=== PATIENT | male | born 1965 | race Caucasian/White ===

== ENCOUNTER 2021-07-21 08:08 | Emergency (ER) | payer BC, SELFPAY ==
[2021-07-21 08:10] VITALS: BP 135/89; PULSE 109; RESP 18; TEMP 38.1; O2SAT 98; BMI 28.5
--- NOTE | 2021-07-21 08:27 | HMH.EDGENADL ---
ED Disposition Clinical Impression: Acute respiratory failure with hypoxia, Pneumonia due to COVID-19 virus Disposition: Home, Self-Care Condition on Discharge: Good Instructions: Pneumonia-Adult, Coronavirus Disease 2019 Prescriptions: dexAMETHasone [Dexamethasone] 2 mg PO BID 10 Days #20 tab Transmission Status: Received by [id number] Ondansetron [Zofran 4mg ODT] 4 mg PO BIDP PRN #10 tab PRN Reason: Nausea Transmission Status: Received by [id number] Referrals: Baldomero Pastor MD [Primary Care Provider] - - Critical Care Critical Care Time: No Attestation: On 07/21/21, the high probability of a clinically significant, sudden or life threatening deterioration of the following system(s) required my full and direct attention, intervention and personal management. The time I documented below is in addition to time spent performing reported procedures but includes the following listed in this critical care notation. Medical Decision Making - Medical Records Medical records reviewed: Yes: I reviewed the patient's medical records. - Malcom Inquiry Pt receiving controlled substance: No Vital Signs: 07/21/21 08:10 07/21/21 08:30 07/21/21 09:00 Temperature 100.6 F H Temperature Source Oral Pulse Rate 103 H 92 H Pulse Rate [Left Radial] 109 H Respiratory Rate 18 Blood Pressure 142/95 H 143/77 H Blood Pressure [Right Arm] 135/89 Blood Pressure Mean 107 98 Blood Pressure Mean [Right Arm] 104 Blood Pressure Source Blood Pressure Source [Right Arm] Automatic Cuff Blood Pressure Position Blood Pressure Position [Right Arm] Sitting 02 Sat by Pulse Oximetry 98 91 L 90 L Oxygen Delivery Method Room Air Oxygen Flow Rate (LPM) 07/21/21 09:40 07/21/21 10:08 07/21/21 11:10 Temperature 98.8 F Temperature Source Pulse Rate 90 79 Pulse Rate [Left Radial] Respiratory Rate 20 Blood Pressure 130/76 139/74 Blood Pressure [Right Arm] Blood Pressure Mean Blood Pressure Mean [Right Arm] Blood Pressure Source Automatic Cuff Blood Pressure Source [Right Arm] Blood Pressure Position Sitting Blood Pressure Position [Right Arm] 02 Sat by Pulse Oximetry 88 L 93 L Oxygen Delivery Method Room Air Nasal Cannula Nasal Cannula Oxygen Flow Rate (LPM) 2 2 - Lab Data Lab Results 07/21/21 08:29: SARS-CoV-2 (PCR) Detected A, Influenza A Untype (PCR) Not detected, Influenza Type B (PCR) Not detected 07/21/21 08:55: WBC 3.8 L, RBC 5.32, Hgb 16.5, Hct 47.2, MCV 88.6, MCH 30.9, MCHC 34.9, RDW 12.9, Plt Count 94 L, MPV 8.8, Neut % (Auto) 81.1 H, Lymph % (Auto) 12.9, Sevier % (Auto) 5.4, Eos % (Auto) 0.0 L, Baso % (Auto) 0.5, Neut # (Auto) 3.1, Lymph # (Auto) 0.5 L, Sevier # (Auto) 0.2, Eos # (Auto) 0.0, Baso # (Auto) 0.0 07/21/21 08:55: D-Dimer 0.51 H 07/21/21 08:55: Sodium 133 L, Potassium 4.7, Chloride 96 L, Carbon Dioxide 30, Anion Gap 11.7, BUN 18, Creatinine 1.00, Estimated Creat Clear 110, Estimated GFR 77, Est GFR ( Amer) 93, Glucose 121 H, Calcium 8.5, Total Bilirubin 0.8, AST 45, ALT 29, Alkaline Phosphatase 66, Total Protein 6.6, Albumin 3.9, Globulin 2.7, Albumin/Globulin Ratio 1.4 Result diagrams: 07/21/21 08:55 07/21/21 08:55 Orders (Tests/Meds): ED MEDICATIONS Discontinued Medications Generic Name Dose Route Start Last Admin Trade Name Bradleyq PRN Reason Stop Dose Admin Dexamethasone Sodium Phosphate 8 mg 07/21/21 08:37 07/21/21 09:02 Dexamethasone 4mg/Ml 1ml Vial IV 07/21/21 08:38 8 mg ONCE ONE Administration Sodium Chloride 1,000 mls @ 999 mls/hr 07/21/21 08:45 07/21/21 09:02 Sod Chlor 0.9% 1000ml Bag IV 07/21/21 09:45 999 mls/hr .Q1H1M SILVINO Administration Iopamidol 140 ml 07/21/21 10:18 07/21/21 10:19 Iopamidol-370 (76%);100ml Bottle IV 07/21/21 10:19 140 ml ONCE ONE Administration Ketorolac Tromethamine 15 mg 07/21/21 08:37 07/21/21 09:02 Ketorolac 30mg/Ml Vial IV 07/21/21 08
[2021-07-21 08:30] VITALS: BP 142/95; PULSE 103; O2SAT 91
--- NOTE | 2021-07-21 08:36 | XR_ITS ---
PROCEDURE: XR CHEST PORTABLE CLINICAL HISTORY: covis symptoms Covid19 positive COMPARISON: No exams were available for comparison FINDINGS: The cardiomediastinal silhouette and pulmonary vascularity are within normal limits. Patchy ground-glass infiltrate is present in the right midlung and left lower lobe. No effusions. No acute bony abnormalities. IMPRESSION: Bilateral ground-glass infiltrates consistent with Covid19 pneumonia Dictated by: Serafin Key MD 07/21/2021 10:33 Serafin Key MD in [place] 07/21/2021 10:33
[2021-07-21 08:55] LABS: Influenza A, PCR Not Detected (NotDetected); Influenza B, PCR Not Detected (NotDetected)
[2021-07-21 09:00] VITALS: BP 143/77; PULSE 92; O2SAT 90
[2021-07-21 09:08] LABS: Basophils % 0.5 % (0.1-2.0); Hematocrit 47.2 % (42.0-52.0); Hemoglobin 16.5 g/dL (14.1-18.0); Lymphocytes # 0.5 K/mm3 (0.7-4.5); Lymphocytes % 12.9 % (10-50); Mean Corpuscular HGB Conc 34.9 g/dL (31.8-35.4); Mean Corpuscular Hemoglobin 30.9 pg (27.0-31.2); Mean Corpuscular Volume 88.6 fl (80-94); Mean Platelet Volume 8.8 fl (7.4-10.4); Monocytes # 0.2 K/mm3 (0.1-1.0); Monocytes % 5.4 % (1.7-9.3); Neutrophils # 3.1 K/mm3 (1.8-7.8); Neutrophils % 81.1 % (37.0-80.0); Platelet Count 94 K/mm3 (142-424); Red Blood Count 5.32 M/mm3 (4.60-6.20); Red Cell Distribution Width 12.9 % (11.5-17.5); White Blood Count 3.8 K/mm3 (4.8-10.8)
[2021-07-21 09:14] LABS: Alanine Aminotransferase 29 U/L (12-78); Albumin Level 3.9 g/dl (3.5-5.0); Albumin/Globulin Ratio 1.4 (1.1-1.8); Alkaline Phosphatase 66 U/L (38-126); Anion Gap 11.7 mEq/L (5-15); Aspartate Amino Transferase 45 U/L (17-59); Bilirubin,Total 0.8 mg/dl (0.2-1.3); Blood Urea Nitrogen 18 mg/dl (9-20); Calcium 8.5 mg/dl (8.4-10.2); Carbon Dioxide 30 mmol/L (22.0-30.0); Chloride 96 mmol/L (98-107); Creatinine Clearance Estimated 110 mL/min (50-200); Estimated Glomerular Filt Rate 77 ml/min (>60); GFR (African American) 93 ML/MIN (>60); Globulin 2.7 g/dL (1.3-3.2); Glucose 121 mg/dl (74-100); Potassium 4.7 mmoL/L (3.5-5.1); Sodium 133 mmol/L (136-145); Total Protein,Serum 6.6 g/dl (6.3-8.2)
[2021-07-21 09:19] LABS: D-Dimer 0.51 ug/mL (0.0-0.5)
[2021-07-21 09:24] LABS: Coronavirus 19, PCR Detected (NotDetected)
--- NOTE | 2021-07-21 09:28 | PC.NURSE ---
Calling Dr Pastor, office staff states he is on a conference call and they weren't sure who was taking call. Someone will return call.
[2021-07-21 09:40] VITALS: O2SAT 88
--- NOTE | 2021-07-21 09:51 | CT_ITS ---
PROCEDURE: CT ANGIO CHEST PE PROTOCOL CLINCIAL INDICATION: Concern for PE, hypoxia Covid19 positive COMPARISON: No exams were available for comparison TECHNIQUE: IV Contrast: 140 ML Isovue 370. Two injections were performed as the 1st injection was without adequate enhancement of the pulmonary arteries. Second injection shows fair enhancement. Axial images obtained with sagittal and coronal reformats. All CT scans at the facility use one or more dose reduction, viz: automated exposure control, ma/kV adjustment per patient size (including targeted exams where dose is matched to indication, i.e. head), or iterative reconstruction technique. FINDINGS: HEART AND MEDIASTINAL STRUCTURES: No evidence of pulmonary embolus, aortic aneurysm, or aortic dissection. Scattered small nodes are present in the mediastinum. LUNGS AND PLEURAL SPACES: Multifocal areas of ground-glass attenuation are present in both upper and lower lobes with some associated atelectatic changes in the lower lobes consistent with Covid19 pneumonia. No effusions. BONY STRUCTURES: No acute bony abnormalities apparent. UPPER ABDOMEN: Mild splenomegaly at 14 cm. Small hiatal hernia. Mild nonspecific thickening of the distal esophagus. ADDITIONAL FINDINGS: No other significant abnormalities. IMPRESSION: 1. No evidence of pulmonary embolus. 2. Multifocal ground-glass infiltrates in both upper and lower lobes with atelectatic changes in the lower lobes consistent with Covid19 pneumonia Dictated by: Serafin Key MD 07/21/2021 10:31 Serafin Key MD in [facility] 07/21/2021 10:31
--- NOTE | 2021-07-21 09:54 | PC.NURSE ---
[employer] Susan Prasad setting up home O2 for pt. It will be sent to him before he leaves the ED
[2021-07-21 10:08] VITALS: BP 130/76; PULSE 90; O2SAT 93
--- NOTE | 2021-07-21 10:20 | SW/DCPLANNER ---
RECEIVED A CALL FROM THE ED THIS PATIENT HAS COVID AND NEEDS 02.... I SET HIM UP WITH [facility] PER HIS REQUEST.. A PORTABLE TANK WILL BE DELIVERED TO THE ED SO PATIENT CAN RETURN HOME...
--- NOTE | 2021-07-21 10:45 | PC.NURSE ---
Arnav at bedside at this time.
[2021-07-21 11:10] VITALS: BP 139/74; PULSE 79; RESP 20; TEMP 37.1; O2SAT 96
== END 2021-07-21 11:12 | disposition home or self-care (01) ==
PROVIDERS: Emergency Provider Student in an Organized Health Care Education/Training Program; PCP Internal Medicine Adolescent Medicine
DX: J96.01 Acute respiratory failure with hypoxia (principal); U07.1 COVID-19; J12.82 Pneumonia due to coronavirus disease 2019
CPT/HCPCS: 36415; 71045; 71275; 80053; 85025; 85378; 96365; 96375; 99283; Q9967; U0003

== ENCOUNTER → 2022-06-03 13:30 | Outpatient (CLI) | payer BC, SELFPAY ==
--- NOTE | 2022-06-03 13:37 | CA_ITS ---
APPROVED REPORT EXAM: Comprehensive 2D, Doppler, and color-flow Echocardiogram Executive Administrator: Jennifer Marcelino RDCS Ht: 6 ft 0 in Wt: 203lbs BSA: 2.14 BP: 120/86 mmHg Indications: ABN EKG 2D Dimensions LVOT 2.25 cm (M/F) 1.5-2.5 M-Mode Dimensions RVDd 1.82 cm (0.9-2.6) LA Diam 2.93 cm (1.9-4.0) LVDd 5.46 cm (3.5-5.7) Ao Diam 3.81 cm (2.0-3.7) LVDs 4.70 cm (3.5-5.7) IVSd 1.10 cm (0.6-1.1) PWd 0.80 cm (0.6-1.1) EF (Teich) 29.40% FS 13.90% EDV (Teich) 145.00 mL ESV (Teich) 102.40 mL LV Diastology E Decel Time 233.00 (160-240 msec) E/A Ratio 0.7 MED E' 14.50 (< 7 cm/sec) E'/MED E' Ratio 3.48 (>14) LAT E' 13.00 (<10 cm/sec) E/LAT E' Ratio 3.88 (>14) Mitral Valve MV E Max Moisés. 50.00 (40-130 cm/s) MV A Velocity 71.00 (40-130 cm/s) E/A Ratio 0.71 MV Decel. Time 233.00 (160-240 ms) MV PHT 68.00 ms Left Ventricle Left atrium is normal size left ventricle is normal size no concentric left ventricular hypertrophy, estimated ejection fraction 55% with no regional wall motion abnormality. Diastolic parameters are within normal range. Right Ventricle Right atrium and right ventricle are normal size and contractility. Aortic Valve Aortic valve is normal, there is no aortic stenosis aortic insufficiency. Mitral Valve Mitral valve is grossly normal, there is no mitral stenosis or mitral regurgitation. Tricuspid Valve Tricuspid valve grossly normal, there is no tricuspid regurgitation. Pulmonic Valve Pulmonic valve is poorly visualized. Great Vessels Aortic root is normal size. Inferior vena cava is normal size with normal inspiratory collapse. Pericardium No significant pericardial effusion noted. Conclusion 1. Normal left ventricular size preserved left ventricular systolic function, estimated ejection fraction 85% with no regional wall motion abnormality, diastolic parameters are within normal range. 2. No significant pericardial effusion noted. 3. Inferior vena cava is normal size with normal inspiratory collapse. Electronically signed by : Jose Alberto Wise MD 06/03/2022 15:06:05
== END ==
PROVIDERS: PCP Internal Medicine Adolescent Medicine; Visit Provider Internal Medicine Adolescent Medicine
DX: R94.31 Abnormal electrocardiogram [ECG] [EKG] (principal)
CPT/HCPCS: 93306

== ENCOUNTER 2025-08-12 11:38 | Outpatient (CLI) | payer BC, SELFPAY ==
[2025-08-12 12:20] VITALS: BMI 28.5
--- NOTE | 2025-08-12 12:25 | ECG_ITS ---
APPROVED REPORT Exam: Resting ECG HR:81 bpm ECG Measurements Heart Rate 81 AXES NV 165 P 52 QRSd 127 QRS -18 QT 350 T 50 QTc 387 Conclusion SINUS RHYTHM POSSIBLE RIGHT VENTRICULAR CONDUCTION DELAY [RSR (QR) IN V1/V2] BORDERLINE ECG UNCONFIRMED REPORT Electronically signed by : Baldomero Pastor MD 08/12/2025 20:25:42
[2025-08-12 12:39] LABS: Hematocrit 43.9 % (42.0-52.0); Hemoglobin 15.5 g/dL (14.1-18.0); Immature Granulocytes % 0.2 %; Mean Corpuscular HGB Conc 35.3 g/dL (31.8-35.4); Mean Corpuscular Hemoglobin 30.8 pg (27.0-31.2); Mean Corpuscular Volume 87.1 fl (80-94); Nucleated Red Blood Cells % 0 %; Platelet Count 163 K/mm3 (142-424); Red Blood Count 5.04 M/mm3 (4.60-6.20); Red Cell Distribution Width-SD 38.8 fL; White Blood Count 4.0 K/mm3 (4.8-10.8)
[2025-08-12 13:04] LABS: Albumin Level 4.5 g/dl (3.5-5.0); Chloride 97 mmol/L (98-107); Potassium 4.9 mmoL/L (3.5-5.1); Sodium 136 mmol/L (136-145)
[2025-08-12 13:07] LABS: Alanine Aminotransferase 53 U/L (12-78); Albumin/Globulin Ratio 1.6 (1.1-1.8); Alkaline Phosphatase 82 U/L (38-126); Anion Gap 14.9 mEq/L (5-15); Aspartate Amino Transferase 67 U/L (17-59); Bilirubin,Total 1.2 mg/dl (0.2-1.3); Blood Urea Nitrogen 16 mg/dl (9-20); Carbon Dioxide 29 mmol/L (22.0-30.0); Creatinine Clearance Estimated 95 mL/min (50-200); Creatinine,Serum 1.10 mg/dl (0.66-1.25); Estimated Glomerular Filt Rate 68 ml/min (>60); GFR (African American) 82 ML/MIN (>60); Globulin 2.8 g/dL (1.3-3.2); Total Protein,Serum 7.3 g/dl (6.3-8.2)
[2025-08-12 13:08] LABS: Calcium 9.3 mg/dl (8.4-10.2); Glucose 123 mg/dl (74-100)
[2025-08-12 14:09] LABS: Total Cells Counted 100
[2025-08-12 14:10] LABS: RBC Morphology Normal
== END 2025-08-12 23:59 | disposition home or self-care (01) ==
LOC: PREOP 11:38
PROVIDERS: PCP Internal Medicine Adolescent Medicine; Visit Provider Surgery
DX: Z01.810 Encounter for preprocedural cardiovascular examination (principal); Z01.812 Encounter for preprocedural laboratory examination; R94.31 Abnormal electrocardiogram [ECG] [EKG]
CPT/HCPCS: 80053; 85007; 85025; 93005

== ENCOUNTER 2025-08-13 09:24 | Day surgery (SDC) | payer BC, SELFPAY ==
[2025-08-12 13:41] VITALS: BP 142/89; PULSE 77; RESP 18; TEMP 36.2; O2SAT 96
[2025-08-12 13:56] VITALS: BP 140/82; PULSE 75; RESP 18; TEMP 36.2; O2SAT 96
[2025-08-12 14:28] VITALS: BMI 28.5
[2025-08-13] VITALS (8 sets, daily range): BP systolic 107–139; BP diastolic 76–95; PULSE 70–90; RESP 16–18; TEMP 36.1–36.5; O2SAT 94–99; BMI 28.5
[2025-08-13] MEDS: LACTATED RINGERS 1000ML 1,000 ML 25 ML IV (10:56)
--- NOTE | 2025-08-13 11:15 | EXP.ANES.CKL ---
[facility] Disclaimer: The information contained in this section may have been updated after the patient was seen, as this information can be updated by other users. Medical History Pneumonia due to COVID-19 virus Acute respiratory failure with hypoxia Surgical History History of removal of cyst Family History Other No significant family history Social History Smoking Status: Never smoker alcohol intake: never substance use type: other current occupational status: retired Travel in the last 8 weeks?: None Have you lived/traveled outside [place] in past 30 days?: No Contact w/someone who lives/traveled outside [place] past 30 days?: No Exposure to someone with infectious disease in past 14 days?: No Do you have a fever (greater than 100.4 F or 38 C)?: No Have you tested positive for COVID-19?: No Exposed to someone with COVID-19 in past 14 days?: No Do you have a sore throat?: No Do you have a cough?: No Do you have any weakness?: No Are you experiencing any nausea/vomitting?: Yes Do you have any diarrhea?: No Are you experiencing any unusual bleeding?: No Do you have any muscle aches/pain?: No Do you have any abdominal pain?: No Are you experiencing loss of taste or smell?: No [facility] Anesthesia Checklist Patient Identification Patient Identification: Arm Band and Verbal (Name & ) Structural Data Planned Operative Procedure/s: I&D NPO Status Verified Time NPO: 00:00 Additional verifications Anesthesia Reactions: No Hx Blood Transfusions: No Blood Transfusion Reaction: No Airway Assessment Mallampati Score:: Class II Dentition: Good Dentition Neurological Assessment Level of Consciousness: Awake, Alert and Appropriate Hx Seizures: No Numbness or tingling in extremities: No Anesthesia Plan Anesthesia Risk discussed: Yes Anesthesia Plan: Verified ASA Class: II Anesthesia Type: General
[2025-08-13] MEDS: CLINDAMYCIN PHOSPHATE/D5W 900 MG/50 ML PIGGYBACK 100 MG IV (12:06)
[2025-08-13] MEDS: LIDOCAINE 1% 20ML MDV 20 ML (12:18)
--- NOTE | 2025-08-13 12:49 | P.OP_ITS ---
Date of procedure: 08/13/25 Pre-op Diagnosis:: Abscessed sebaceous cyst Post-op Diagnosis:: Same Procedure performed:: Incision and drainage of abscess sebaceous cyst with debridement of skin, subcutaneous tissues, and cyst capsule Surgeon:: Alfredito Guillaume MD PROFESSIONAL NURSE:: Олег Conway Anesthesia: local and LMA Estimated blood loss (mL): 15 Operative findings:: Consistent with large abscess sebaceous cyst, partially spontaneously drained Operative note:: Consent was obtained patient was taken the operating room. He was positioned in supine position. General anesthesia was induced via LMA. He was repositioned in right lateral position. The area was prepped and draped in the standard surgical fashion. Initially limited incision was made at the site of fluctuance and denuded overlying tissue where there was spontaneous drainage of purulent caseous material. Cultures were obtained. There was a relatively large underlying cyst capsule which was abscess containing waxy caseous material. This was evacuated. Due to the large size of the pocket incision was extended somewhat superiorly as somewhat of a cruciate type incision to allow for evacuation of the cyst debris. The wound was curetted with a small curette. This allowed for piecemeal removal of as much of the cyst capsule as feasible. There was a skin punctum in the right upper aspect where the cyst capsule tracked to. To help eliminate future recurrence this was cored out with a 3 mm punch biopsy. As much of the cyst capsule as could be identified was feasibly removed. Wound was then irrigated. Hemostasis was achieved with limited use of electrocautery. Local anesthetic was infiltrated. Wound was packed with a portion of dry 4 x 4 and covered with clean dry sterile dressing. . Condition: stable Disposition: PACU Complications:: None immediately apparent
--- NOTE | 2025-08-13 12:57 | EXP.ANES.I ---
[facility] Anesthesia Record Part I Anesthesia Record I Intake, IV Amount: 500 Hydration: Adequate Estimated blood loss (mL): 5 Urine output (mL): 0 Blood Products used (#): none Blood Pressure: 107/77 SaO2: 99 Pulse Rate: 70 Airway Patency: Patent Respiratory Rate: 16 Temperature: 97 F Patient is:: Drowsy and Stable Stable to PACU at:: 12:55
--- NOTE | 2025-08-13 16:04 | P.PNANES_ITS ---
[facility] Anesthesia Record Part II Anesthesia Record Part II Discharge Time: 13:25 Destination: Surgical Day Care (OP Surgery) PACU nurse assessment reviewed?: Yes Patient Condition:: Good Anesthesia Complications:: None Swallowing reflex intact?: Yes Airway Patency: Patent Cyanosis?: No Blood Pressure: 118/80 SaO2: 99 Respiratory Rate: 18 Pulse Rate: 76 Temperature: 97.1 F Mental Status: Alert & Oriented Pain level:: 0 Nausea and/or vomitting:: None Intake, IV Amount: 0 Hydration: Adequate
== END 2025-08-13 14:10 | disposition home or self-care (01) ==
PROVIDERS: PCP Internal Medicine Adolescent Medicine; Visit Provider Surgery
PROC: (CPT 11400; principal; 2025-08-13 11:00)
DX: L72.0 Epidermal cyst (principal); L02.212 Cutaneous abscess of back [any part, except buttock and flank]
CPT/HCPCS: 11400; 87070; 87077; 87186; 87205; 96374; J0736; J1100; J2003; J2250; J2405; J2704; J2795; J3010; J7120

== ENCOUNTER 2025-08-14 12:56 | Outpatient (CLI) | payer BC, SELFPAY | END 2025-08-14 23:59 | disposition home or self-care (01) | LOC: INF 12:57 | PROVIDERS: PCP Internal Medicine Adolescent Medicine; Visit Provider Surgery | DX: R69 Illness, unspecified (principal) | CPT/HCPCS: G0463 ==

== ENCOUNTER 2025-08-15 12:19 | Outpatient (CLI) | payer BC, SELFPAY | END 2025-08-15 23:59 | disposition home or self-care (01) | LOC: INF 12:21 | PROVIDERS: PCP Internal Medicine Adolescent Medicine; Visit Provider Surgery | DX: R69 Illness, unspecified (principal) | CPT/HCPCS: 99211; G0463 ==

== ENCOUNTER 2025-08-16 10:53 | Outpatient (CLI) | payer BC, SELFPAY | END 2025-08-16 23:59 | disposition home or self-care (01) | LOC: INF 10:55 | PROVIDERS: PCP Internal Medicine Adolescent Medicine; Visit Provider Internal Medicine Adolescent Medicine | DX: Z51.89 Encounter for other specified aftercare (principal); L72.3 Sebaceous cyst ==

== ENCOUNTER 2025-08-17 12:43 | Outpatient (CLI) | payer BC, SELFPAY | END 2025-08-17 23:59 | disposition home or self-care (01) | LOC: INF 12:45 | PROVIDERS: PCP Internal Medicine Adolescent Medicine; Visit Provider Internal Medicine Adolescent Medicine | DX: Z51.89 Encounter for other specified aftercare (principal); L72.3 Sebaceous cyst ==

== ENCOUNTER 2025-08-18 12:32 | Outpatient (RCR) | payer BC, SELFPAY | END 2025-08-18 13:32 | LOC: INF 12:32 | PROVIDERS: PCP Internal Medicine Adolescent Medicine; Visit Provider Surgery | DX: L02.212 Cutaneous abscess of back [any part, except buttock and flank] (principal) | CPT/HCPCS: 99211; G0463 ==

== ENCOUNTER 2025-08-20 12:40 | Outpatient (CLI) | payer BC, SELFPAY | END 2025-08-20 23:59 | disposition home or self-care (01) | PROVIDERS: PCP Internal Medicine Adolescent Medicine; Visit Provider Surgery | DX: R69 Illness, unspecified (principal) | CPT/HCPCS: 99211; G0463 ==

== ENCOUNTER → 2025-08-21 12:38 | Outpatient (RCR) | payer BC, SELFPAY | LOC: INF 12:38 | PROVIDERS: PCP Internal Medicine Adolescent Medicine; Visit Provider Surgery | DX: Z51.89 Encounter for other specified aftercare (principal); L72.3 Sebaceous cyst | CPT/HCPCS: 99211; G0463 ==